=== PATIENT | female | born 1990 | race Caucasian/White ===

== ENCOUNTER 2018-10-28 01:55 | Inpatient (IN) | payer BC ==
[2018-10-28] MEDS ORDERED: Ondansetron 4 MG/2 ML SDV IVPUSH PRN ×2 (02:16→03:05)
[2018-10-28] MEDS ORDERED: Sodium Chloride 0.9% 10 ML Syringe FLUSH PRN (02:16)
[2018-10-28] MEDS ORDERED: Nalbuphine 20 MG/ML 1 ML Syringe IVPUSH PRN (02:16)
[2018-10-28] MEDS ORDERED: Ampicillin 2 GM AdvVial IV ONE (02:23)
[2018-10-28] MEDS ORDERED: Ampicillin 2 GM in Sodium Chloride 0.9% 100 ML IV ONE (02:30)
[2018-10-28] MEDS ORDERED: Oxytocin/Lactated Ringers 10 UNIT/1,000 ML BAG IV SCH (02:30)
[2018-10-28] MEDS: Lactated Ringers 1,000 ML IV SCH ×3 (02:41→06:43)
[2018-10-28] MEDS ORDERED: ePHEDrine 50 MG/ML SDV IVPUSH PRN (03:05)
[2018-10-28] MEDS ORDERED: diphenhydrAMINE 50 MG/ML SDV IVPUSH PRN (03:05)
[2018-10-28] MEDS ORDERED: fentaNYL 100 MCG/2 ML SDV EPIDUR PRN (03:05)
[2018-10-28] MEDS ORDERED: fentaNYL/Bupivacaine-NS 2 MCG/ML-0.125%/PF 100 ML Bag EPIDUR SCH (03:15)
--- NOTE | 2018-10-28 03:53 | PCM.PREANE ---
Preanesthetic Assessment - Anesthesia/Transfusion/Family Hx Anesthesia History: Prior Anesthesia Without Reaction Family History of Anesthesia Reaction: No Transfusion History: No Prior Transfusion(s) - Review of Systems General: No Symptoms Pulmonary: No Symptoms Cardiovascular: No Symptoms Gastrointestinal: Other (Heart Burn ) Neurological: No Symptoms Other: Reports: None - Physical Assessment O2 Sat by Pulse Oximetry: 98 Respiratory Rate: 16 Vital Signs: Last Vital Signs Temp 36.8 C 10/28/18 02:05 Pulse 77 10/28/18 02:05 Resp 16 10/28/18 02:05 BP 128/78 10/28/18 02:05 Pulse Ox 98 10/28/18 02:05 Height: 1.65 m Weight: 91.172 kg ASA Class: 2 Mental Status: Alert & Oriented x3 Airway Class: Mallampati = 2 Dentition: Reports: Normal Dentition Thyro-Mental Finger Breadths: 3 Mouth Opening Finger Breadths: 3 ROM/Head Extension: Full Lungs: Clear to Auscultation, Normal Respiratory Effort Cardiovascular: Regular Rate, Regular Rhythm - Lab Values: Laboratory Last Values WBC 10.52 K/mm3 (3.98-10.04) H 10/28/18 02:35 RBC 4.79 M/mm3 (3.98-5.22) 10/28/18 02:35 Hgb 13.6 gm/L (11.2-15.7) 10/28/18 02:35 Hct 40.5 % (34.1-44.9) 10/28/18 02:35 MCV 84.6 fl (79.4-94.8) 10/28/18 02:35 MCH 28.4 pg (25.6-32.2) 10/28/18 02:35 MCHC 33.6 g/dl (32.2-35.5) 10/28/18 02:35 RDW Std Deviation 41.7 fL (36.4-46.3) 10/28/18 02:35 Plt Count 186 K/mm3 (182-369) 10/28/18 02:35 MPV 10.8 fl (9.4-12.3) 10/28/18 02:35 Neut % (Auto) 76.1 % (34.0-71.1) H 10/28/18 02:35 Lymph % (Auto) 15.8 % (19.3-51.7) L 10/28/18 02:35 [place] % (Auto) 6.8 % (4.7-12.5) 10/28/18 02:35 Eos % (Auto) 0.9 (0.7-5.8) 10/28/18 02:35 Baso % (Auto) 0.1 % (0.1-1.2) 10/28/18 02:35 Neut # (Auto) 8.01 K/mm3 (1.56-6.13) H 10/28/18 02:35 Lymph # (Auto) 1.66 K/mm3 (1.18-3.74) 10/28/18 02:35 [place] # (Auto) 0.72 K/mm3 (0.24-0.36) H 10/28/18 02:35 Eos # (Auto) 0.09 K/mm3 (0.04-0.36) 10/28/18 02:35 Baso # (Auto) 0.01 K/mm3 (0.01-0.08) 10/28/18 02:35 Blood Type O NEGATIVE 10/28/18 02:35 Gel Antibody Screen Positive 10/28/18 02:35 - Allergies Allergies/Adverse Reactions: Allergies Allergy/AdvReac Type Severity Reaction Status Date / Time Sulfa (Sulfonamide Allergy Hives Verified 10/28/18 02:05 Antibiotics) - Acknowledgements Anesthesia Type Planned: Epidural Pt an Appropriate Candidate for the Planned Anesthesia: Yes Alternatives and Risks of Anesthesia Discussed w Pt/Guardian: Yes Pt/Guardian Understands and Agrees with Anesthesia Plan: Yes PreAnesthesia Questionnaire HEENT History: Reports: Impaired Vision, Other (See Below) Other HEENT History: Corrective lenses VP ANCILLARY History: Reports: Endocrine/Metabolic History: Reports: Obesity/BMI 30+ - SUBSTANCE USE Smoking Status *Q: Never Smoker Second Hand Smoke Exposure: No Recreational Drug Use History: No - CURRENT (IN HOUSE) MEDS Current Meds: Current Medications Diphenhydramine HCl (Benadryl) 25 mg IVPUSH Q6H PRN PRN Reason: Pruritis Ephedrine Sulfate (Ephedrine Sulfate) 5 mg IVPUSH ASDIRECTED PRN PRN Reason: Hypotension Fentanyl (Sublimaze) 100 mcg EPIDUR ONETIME PRN PRN Reason: Pain Last Admin: 10/28/18 03:47 Dose: 100 mcg Fentanyl/Bupivacaine HCl (Cnwuqgnc-Ynegg-Lp 2 Mcg/Ml-0.125%) 100 ml EPIDUR ASDIRECTED [facility] Last Admin: 10/28/18 03:47 Dose: 100 ml Lactated Ringer's (Ringers, Lactated) 1,000 mls @ 100 mls/hr IV ASDIRECTED [facility] Last Admin: 10/28/18 03:06 Dose: 999 mls/hr Ampicillin Sodium 1 gm/ Sodium (Chloride) 100 mls @ 200 mls/hr IV Q4H [facility] Oxytocin/Lactated Ringer's (Pitocin In Lr 10 Units/1,000 Ml) 10 unit in 1,000 mls @ 500 mls/hr IV .CONTINUOUS [facility] Nalbuphine HCl (Nubain) 10 mg IVPUSH Q2H PRN PRN Reason: pain Ondansetron HCl (Zofran) 4 mg IVPUSH Q4H PRN PRN Reason: Nausea/Vomiting Ondansetron HCl (Zofran) 4 mg IVPUSH ONETIME PRN PRN Reason: Nausea/Vomiting Sodium Chloride (Saline Flush) 10 ml FLUSH ASDIRECTED PRN PRN Reason: Keep Vein Open Discontinued Medications Ampicillin Sodium (Ampicillin) Confirm Administered Dose 2 gm IV .STK-MED ONE Stop: 10/28/18 02:24 Last Admin: 10/28/18 02:42 Dose: Not Given Ampicillin Sodium 2 gm/ Sodium (Chloride) 100 mls @ 200 mls/hr IV ONETIME ONE Stop: 10/28/18 02:59 Last Admin: 10/28/18 02:41 Dose: 200 mls/hr
[2018-10-28] MEDS ORDERED: Ampicillin 1 GM in Sodium Chloride 0.9% 100 ML IV SCH (06:30)
[2018-10-28] MEDS ORDERED: ceFAZolin 1 GM in Premix Bag 1 BAG IV ONE (09:30)
--- NOTE | 2018-10-28 09:36 | PCM.DEL ---
L & D Note - General Info Date of Service: 10/28/18 - Delivery Note Labor: Spontaneous Delivery Outcome: Livebirth Delivery Method: Spontaneous Vaginal Delivery-Single Delivery Mode: Vacuum Extraction Presentation: Right Occiput Anterior (GRZEGORZ) Nuchal Cord: None Anesthesia Type: Epidural Amniotic Fluid Description: Clear Episiotomy Type: None Laceration: 2nd Degree, Perineal Suture type: Vicryl Suture size: 2-0 Placenta: Intact, Spontaneous Cord: 3 Vessels Estimated Blood Loss: 200 Resuscitation Needed: Yes [place]: Bulb Syringe, Stimulated, Warmed, [place] Used, Warmer Used Delivery Comments (Free Text/Narrative):: The patient was pushing in the dorsal lithotomy position. She had been pushing for about 1 hour with good effort. Moderate amount of bright blood encountered with pushing. With pushing head did seem to come down to +2 station, but in between pushing settled higher in pelvis. Overall picture concerning for possible impending uterine rupture. OR crew alerted to set up OR and be on standby. Maternal pushing effort was good and the pelvis was felt to be adequate for an instrument assisted delivery. Given concerns listed above patient consented for vacuum assistance The mushroom cup was placed without difficulty with care to avoid the vaginal side power. Application around 0903. Subsequent vacuum assisted vaginal delivery occurred over 2 contractions. Total pressure applied 550 mm Hg. Total pop offs 0. Suction was removed following delivery of the head. No nuchal cord. The remainder of the delivered without difficulty. The umbilical cord was clamped and cut and the infant was placed on maternal abdomen. Placenta allowed time to separate and expelled intact. Hand placed into the uterine cavity to level of the fundus. With gently withdrawing hand the anterior surface of the uterus was palpated and a depression around anticipated site of scar was felt , but breech or rupture noted. Patient given dose of ancef for this exploration Inspection of the perineum following delivery with a 2nd degree laceration which was repaired with a 2-0 vicryl in the typical fashion Vacuum Extractor Progress Note - Alternative Labor Strategies Considered Alternative Labor Strategies Considered:: Reports: Yes Strategies Considered:: Reports: Contraction Intensity Adequate Indications Considered:: Reports: Yes Indications:: Reports: Suspicion of Immediate or Potential Compromise Time Out:: Reports: Yes - Patient Prepared Patient Prepared:: Reports: Yes Informed Consent:: Reports: Verbal Risks: Reports: Yes Risks Include:: Reports: Laceration, Shoulder Dystocia, Maternal Injury Anesthesia/Analgesia Adequate:: Reports: Yes - Probability of Success High Probability of Success:: Reports: Yes Weight Estimated:: Reports: AGA Patient Diabetic:: Reports: No Pelvis Adequate:: Reports: Yes Asynclitic:: Reports: No - Application Time Maximum Application Time & Number of Pop-Offs Predetermined:: Reports: Yes Maximum Pressure Maintained in [place] (cm Hg):: 550 Total Application Time (min): *max=20min: 4 Number of Times Cup Disengaged:: 0 Type of Vacuum Used:: Reports: Cup: Mushroom type Vacuum Extraction: Successful - Exit Strategy Exit strategy available:: Reports: Yes and resuscitation teams readily available:: Reports: Yes - General Info Date of Service: 10/28/18 - Patient Data Vitals - Most Recent: Last Vital Signs Temp 36.8 C 10/28/18 02:05 Pulse 77 10/28/18 02:05 Resp 16 10/28/18 03:52 BP 128/78 10/28/18 02:05 Pulse Ox 98 10/28/18 03:52 Weight - Most Recent: 91.172 kg Lab Results Last 24 Hours: Laboratory Results - last 24 hr 10/28/18 10/28/18 Range/Units 02:35 02:35 WBC 10.52 H (3.98-10.04) K/mm3 RBC 4.79 (3.98-5.22) M/mm3 Hgb 13.6 (11.2-15.7) gm/L Hct 40.5 (34.1-44.9) % MCV 84.6 (79.4-94.8) fl MCH 28.4 (25.6-32.2) pg MCHC 33.6 (32.2-35.5) g/dl RDW Std Deviation 41.7 (36.4-46.3) fL Plt Count 186 (182-369) K/mm3 MPV 10.8 (9.4-12.3) fl Neut % (Auto) 76.1 H (34.0-71.1) % Lymph % (Auto) 15.8 L (19.3-51.7) % [place] % (Auto) 6.8 (4.7-12.5) % Eos % (Auto) 0.9 (0.7-5.8) Baso % (Auto) 0.1 (0.1-1.2) % Neut # (Auto) 8.01 H (1.56-6.13) K/mm3 Lymph # (Auto) 1.66 (1.18-3.74) K/mm3 [place] # (Auto) 0.72 H (0.24-0.36) K/mm3 Eos # (Auto) 0.09 (0.04-0.36) K/mm3 Baso # (Auto) 0.01 (0.01-0.08) K/mm3 Blood Type O NEGATIVE Gel Antibody Screen Positive Med Orders - Current: Current Medications Diphenhydramine HCl (Benadryl) 25 mg IVPUSH Q6H PRN PRN Reason: Pruritis Ephedrine Sulfate (Ephedrine Sulfate) 5 mg IVPUSH ASDIRECTED PRN PRN Reason: Hypotension Fentanyl (Sublimaze) 100 mcg EPIDUR ONETIME PRN PRN Reason: Pain Last Admin: 10/28/18 03:47 Dose: 100 mcg Fentanyl/Bupivacaine HCl (Htwtwbos-Xxawv-Lj 2 Mcg/Ml-0.125%) 100 ml EPIDUR ASDIRECTED [facility] Last Admin: 10/28/18 03:47 Dose: 100 ml Lactated Ringer's (Ringers, Lactated) 1,000 mls @ 100 mls/hr IV ASDIRECTED [facility] Last Admin: 10/28/18 06:43 Dose: 150 mls/hr Ampicillin Sodium 1 gm/ Sodium (Chloride) 100 mls @ 200 mls/hr IV Q4H [facility] Last Admin: 10/28/18 06:41 Dose: 200 mls/hr Oxytocin/Lactated Ringer's (Pitocin In Lr 10 Units/1,000 Ml) 10 unit in 1,000 mls @ 500 mls/hr IV .CONTINUOUS [facility] Cefazolin Sodium/Dextrose 1 gm (/ Premix) 50 mls @ 100 mls/hr IV ONETIME ONE Stop: 10/28/18 09:59 Nalbuphine HCl (Nubain) 10 mg IVPUSH Q2H PRN PRN Reason: pain Ondansetron HCl (Zofran) 4 mg IVPUSH Q4H PRN PRN Reason: Nausea/Vomiting Ondansetron HCl (Zofran) 4 mg IVPUSH ONETIME PRN PRN Reason: Nausea/Vomiting Sodium Chloride (Saline Flush) 10 ml FLUSH ASDIRECTED PRN PRN Reason: Keep Vein Open Discontinued Medications Ampicillin Sodium (Ampicillin) Confirm Administered Dose 2 gm IV .STK-MED ONE Stop: 10/28/18 02:24 Last Admin: 10/28/18 02:42 Dose: Not Given Ampicillin Sodium 2 gm/ Sodium (Chloride) 100 mls @ 200 mls/hr IV ONETIME ONE Stop: 10/28/18 02:59 Last Admin: 10/28/18 02:41 Dose: 200 mls/hr - Problem List & Annotations (1) 38 weeks gestation of SNOMED Code(s): 24066524 Code(s): Z3A.38 - 38 WEEKS GESTATION OF Status: Acute Current Visit: Yes (2) GBS (group B Streptococcus carrier), +RV culture, currently SNOMED Code(s): 3587214493815, 950398508, 6942228146017 Code(s): O99.820 - STREPTOCOCCUS B CARRIER STATE COMPLICATING Status: Acute Current Visit: Yes (3) History of SNOMED Code(s): 720905883 Code(s): Z98.891 - HISTORY OF UTERINE SCAR FROM PREVIOUS SURGERY Status: Acute Current Visit: Yes (4) Hx successful (vaginal after ), currently SNOMED Code(s): 643541549, 963891540, 987981866 Code(s): O34.219 - MATERNAL CARE FOR UNSP TYPE SCAR FROM PREVIOUS DEL Status: Acute Current Visit: Yes (5) Rh negative state in antepartum period SNOMED Code(s): 637461427 Code(s): O26.899 - OTH RELATED CONDITIONS, UNSPECIFIED TRIMESTER; Z67.91 - UNSPECIFIED BLOOD TYPE, RH NEGATIVE Status: Acute Current Visit: Yes (6) Status post vacuum-assisted vaginal delivery SNOMED Code(s): 571513145, 07170380251366458 Code(s): Z87.59 - PERSONAL HISTORY OF COMP OF PREG, CHLDBRTH AND THE PUERP Status: Acute Current Visit: Yes - Problem List Review Problem List Initiated/Reviewed/Updated: Yes - My Orders Last 24 Hours: My Active Orders 10/28/18 02:05 Vital Signs [RC] PER UNIT ROUTINE Resuscitation Status Routine 10/28/18 02:16 Nalbuphine [Nubain] 10 mg IVPUSH Q2H PRN Ondansetron [Zofran] 4 mg IVPUSH Q4H PRN Sodium Chloride 0.9% [Saline Flush] 10 ml FLUSH ASDIRECTED PRN 10/28/18 02:17 Patient Status [ADT] Routine Activity as Tolerated [RC] PFP Communication Order [RC] ASDIRECTED Heart Tones [RC] ASDIRECTED Non Stress Test [RC] PER UNIT ROUTINE Notify Provider [RC] PFP Notify Provider [RC] PRN Peripheral IV Care [RC] . DIRECTED Vital Signs [RC] PER UNIT ROUTINE Electronic Heart Tones Ext w TOCO [WOMSER] Routine Electronic Heart Tones Internal [WOMSER] Per Unit Routine Peripheral IV Insertion Adult [OM.PC] Routine 10/28/18 02:30 Lactated Ringers [Ringers, Lactated] 1,000 ml IV ASDIRECTED Oxytocin/Lactated Ringers [Pitocin in LR 10 Units/1,000 ML] 10 unit in 1,000 ml IV .CONTINUOUS 10/28/18 02:35 ANTIBODY IDENTIFICATION [BBK] Stat RAPID PLASMA REAGIN,RPR [CHEM] Routine TYPE AND SCREEN [BBK] Stat 10/28/18 06:30 Ampicillin 1 gm Sodium Chloride 0.9% [Normal Saline] 100 ml IV Q4H 10/28/18 09:30 ceFAZolin [Ancef] 1 gm Premix Bag 1 bag IV ONETIME 10/28/18 09:31 Patient Status Manage Transfer [TRANSFER] Routine 10/28/18 Breakfast Regular Diet [DIET] - Assessment Assessment:: 28 y/o PPD#0 from [facility]/ - Plan Plan:: * Routine cares * Encourage breast feeding * Will assess baby blood type to assess need for Rhogam * Patient to be given 1 gram ancef * Discharge home in 1-2 days
--- NOTE | 2018-10-28 09:36 | PCM.LDHP ---
L&D History of Present Illness - General Date of Service: 10/28/18 Admit Problem/Dx: Patient Status Order with Admit Dx/Problem 10/28/18 02:05 Patient Status [ADT] Routine 10/28/18 02:17 Patient Status [ADT] Routine Admission Diagnosis/Problem Admission Diagnosis/Problem Source of Information: Patient History Limitations: Reports: No Limitations - History of Present Illness Introduction:: Patient is a 28 y/o at 38 5/7 wks who presented early this AM in labor. Doing well currently. Comfortable with her epidural in place. 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: , Other (See Below) (History of HELLP Syndrome / Preeclampsia) : 3 Para: 2 LMP (Approximate): - Past Surgical History Female Surgical History: Reports: Section Social & Family History - Family History Family Medical History: Noncontributory - Tobacco Use Smoking Status *Q: Never Smoker Second Hand Smoke Exposure: No - Caffeine Use Caffeine Use: Reports: Soda Other Caffeine Use: occasional - Alcohol Use Alcohol Use History: No - Recreational Drug Use Recreational Drug Use: No H&P Review of Systems - Review of Systems: Review Of Systems: See Below General: Reports: No Symptoms Pulmonary: Reports: No Symptoms Cardiovascular: Reports: No Symptoms Gastrointestinal: Reports: No Symptoms Genitourinary: Reports: No Symptoms Musculoskeletal: Reports: No Symptoms Psychiatric: Reports: No Symptoms Neurological: Reports: No Symptoms L&D Exam - Exam Exam: See Below - Vital Signs Vital Signs: Last Vital Signs Temp 36.8 C 10/28/18 02:05 Pulse 77 10/28/18 02:05 Resp 16 10/28/18 03:52 BP 128/78 10/28/18 02:05 Pulse Ox 98 10/28/18 03:52 Weight: 91.172 kg - OB Specific Contraction Intensity: Moderate to Strong Movement: Active Heart Tones: Present Heart Tones per Min: 135 Heart Rate (FHR) Variability: Moderate (6-25 bmp) Presentation: Vertex - Montesinos Score Montesinos Score Cervix Position: Anterior Montesinos Score Consistency: Soft Montesinos Score Effacement: >80% Montesinos Score Dilation: > 5 cm Montesinos Score Infant's Station: -1 ,0 Montesinos Score Total: 12 - Exam General: Alert, Oriented, Cooperative Lungs: Clear to Auscultation, Normal Respiratory Effort Cardiovascular: Regular Rate, Regular Rhythm GI/Abdominal Exam: Soft, Non-Tender Genitourinary: Normal external exam Extremities: Normal Inspection Skin: Warm, Dry, Intact - Patient Data Lab Results Last 24 hrs: Laboratory Results - last 24 hr 10/28/18 10/28/18 Range/Units 02:35 02:35 WBC 10.52 H (3.98-10.04) K/mm3 RBC 4.79 (3.98-5.22) M/mm3 Hgb 13.6 (11.2-15.7) gm/L Hct 40.5 (34.1-44.9) % MCV 84.6 (79.4-94.8) fl MCH 28.4 (25.6-32.2) pg MCHC 33.6 (32.2-35.5) g/dl RDW Std Deviation 41.7 (36.4-46.3) fL Plt Count 186 (182-369) K/mm3 MPV 10.8 (9.4-12.3) fl Neut % (Auto) 76.1 H (34.0-71.1) % Lymph % (Auto) 15.8 L (19.3-51.7) % [place] % (Auto) 6.8 (4.7-12.5) % Eos % (Auto) 0.9 (0.7-5.8) Baso % (Auto) 0.1 (0.1-1.2) % Neut # (Auto) 8.01 H (1.56-6.13) K/mm3 Lymph # (Auto) 1.66 (1.18-3.74) K/mm3 [place] # (Auto) 0.72 H (0.24-0.36) K/mm3 Eos # (Auto) 0.09 (0.04-0.36) K/mm3 Baso # (Auto) 0.01 (0.01-0.08) K/mm3 Blood Type O NEGATIVE Gel Antibody Screen Positive Result Diagrams: 10/28/18 02:35 - Problem List (1) 38 weeks gestation of SNOMED Code(s): 71344990 ICD Code: Z3A.38 - 38 WEEKS GESTATION OF Status: Acute Current Visit: Yes (2) Rh negative state in antepartum period SNOMED Code(s): 136071029 ICD Code: O26.899 - OTH RELATED CONDITIONS, UNSPECIFIED TRIMESTER; Z67.91 - UNSPECIFIED BLOOD TYPE, RH NEGATIVE Status: Acute Current Visit: Yes (3) History of SNOMED Code(s): 474285005 ICD Code: Z98.891 - HISTORY OF UTERINE SCAR FROM PREVIOUS SURGERY Status: Acute Current Visit: Yes (4) Hx successful (vaginal after ), currently SNOMED Code(s): 062844153, 411495833, 429730933 ICD Code: O34.219 - MATERNAL CARE FOR UNSP TYPE SCAR FROM PREVIOUS DEL Status: Acute Current Visit: Yes (5) GBS (group B Streptococcus carrier), +RV culture, currently SNOMED Code(s): 8729846925214, 658203858, 9621037183113 ICD Code: O99.820 - STREPTOCOCCUS B CARRIER STATE COMPLICATING Status: Acute Current Visit: Yes Problem List Initiated/Reviewed/Updated: Yes Orders Last 24hrs: Active Orders 24 hr Category Date Time Status Patient Status Manage Transfer [TRANSFER] Routine ADT 10/28/18 09:31 Ordered Patient Status [ADT] Routine ADT 10/28/18 02:17 Active Activity as Tolerated [RC] PFP Care 10/28/18 02:17 Active Communication Order [RC] ASDIRECTED Care 10/28/18 02:17 Active Heart Tones [RC] ASDIRECTED Care 10/28/18 02:17 Active Non Stress Test [RC] PER UNIT ROUTINE Care 10/28/18 02:17 Active Notify Provider [RC] ASDIRECTED Care 10/28/18 03:05 Active Notify Provider [RC] PFP Care 10/28/18 02:17 Active Notify Provider [RC] PRN Care 10/28/18 02:17 Active Peripheral IV Care [RC] . DIRECTED Care 10/28/18 02:17 Active Vital Signs [RC] PER UNIT ROUTINE Care 10/28/18 02:05 Active Vital Signs [RC] PER UNIT ROUTINE Care 10/28/18 02:17 Active Regular Diet [DIET] Diet 10/28/18 Breakfast Active ANTIBODY IDENTIFICATION [BBK] Stat Lab 10/28/18 02:35 Results RAPID PLASMA REAGIN,RPR [CHEM] Routine Lab 10/28/18 02:35 Received TYPE AND SCREEN [BBK] Stat Lab 10/28/18 02:35 Results Ampicillin 1 gm Med 10/28/18 06:30 Active Sodium Chloride 0.9% [Normal Saline] 100 ml IV Q4H Lactated Ringers [Ringers, Lactated] 1,000 ml Med 10/28/18 02:30 Active IV ASDIRECTED Nalbuphine [Nubain] Med 10/28/18 02:16 Active 10 mg IVPUSH Q2H PRN Ondansetron [Zofran] Med 10/28/18 03:05 Active 4 mg IVPUSH ONETIME PRN Ondansetron [Zofran] Med 10/28/18 02:16 Active 4 mg IVPUSH Q4H PRN Oxytocin/Lactated Ringers [Pitocin in LR 10 Units/1,000 Med 10/28/18 02:30 Active ML] 10 unit in 1,000 ml IV .CONTINUOUS Sodium Chloride 0.9% [Saline Flush] Med 10/28/18 02:16 Active 10 ml FLUSH ASDIRECTED PRN ceFAZolin [Ancef] 1 gm Med 10/28/18 09:30 Active Premix Bag 1 bag IV ONETIME diphenhydrAMINE [Benadryl] Med 10/28/18 03:05 Active 25 mg IVPUSH Q6H PRN ePHEDrine [ePHEDrine sulfate] Med 10/28/18 03:05 Active 5 mg IVPUSH ASDIRECTED PRN fentaNYL [Sublimaze] Med 10/28/18 03:05 Active 100 mcg EPIDUR ONETIME PRN fentaNYL/Bupivacaine/NS/PF [syuokUJJ-Rxkwm-OJ 2 MCG/ML- Med 10/28/18 03:15 Active 0.125%] 100 ml EPIDUR ASDIRECTED Electronic Heart Tones Ext w TOCO [WOMSER] Oth 10/28/18 02:17 Ordered Routine Electronic Heart Tones Internal [WOMSER] Per Unit Oth 10/28/18 02:17 Ordered Routine Peripheral IV Insertion Adult [OM.PC] Routine Oth 10/28/18 02:17 Ordered Resuscitation Status Routine Resus Stat 10/28/18 02:05 Ordered Medication Orders Diphenhydramine HCl (Benadryl) 25 mg IVPUSH Q6H PRN PRN Reason: Pruritis Ephedrine Sulfate (Ephedrine Sulfate) 5 mg IVPUSH ASDIRECTED PRN PRN Reason: Hypotension Fentanyl (Sublimaze) 100 mcg EPIDUR ONETIME PRN PRN Reason: Pain Last Admin: 10/28/18 03:47 Dose: 100 mcg Fentanyl/Bupivacaine HCl (Nmbmgjly-Gdivy-Sn 2 Mcg/Ml-0.125%) 100 ml EPIDUR ASDIRECTED [facility] Last Admin: 10/28/18 03:47 Dose: 100 ml Lactated Ringer's (Ringers, Lactated) 1,000 mls @ 100 mls/hr IV ASDIRECTED [facility] Last Admin: 10/28/18 06:43 Dose: 150 mls/hr Infusion: 10/28/18 04:07 Dose: 999 mls/hr Admin: 10/28/18 03:06 Dose: 999 mls/hr Infusion: 10/28/18 03:06 Dose: 100 mls/hr Admin: 10/28/18 02:41 Dose: 100 mls/hr Ampicillin Sodium 1 gm/ Sodium (Chloride) 100 mls @ 200 mls/hr IV Q4H [facility] Last Admin: 10/28/18 06:41 Dose: 200 mls/hr Oxytocin/Lactated Ringer's (Pitocin In Lr 10 Units/1,000 Ml) 10 unit in 1,000 mls @ 500 mls/hr IV .CONTINUOUS [facility] Cefazolin Sodium/Dextrose 1 gm (/ Premix) 50 mls @ 100 mls/hr IV ONETIME ONE Stop: 10/28/18 09:59 Nalbuphine HCl (Nubain) 10 mg IVPUSH Q2H PRN PRN Reason: pain Ondansetron HCl (Zofran) 4 mg IVPUSH Q4H PRN PRN Reason: Nausea/Vomiting Ondansetron HCl (Zofran) 4 mg IVPUSH ONETIME PRN PRN Reason: Nausea/Vomiting Sodium Chloride (Saline Flush) 10 ml FLUSH ASDIRECTED PRN PRN Reason: Keep Vein Open Assessment/Plan Comment:: * Labs done on admission * Epidural in place * Receiving ampicillin for GBS status * AROM performed of large forebag, currently about 9 cm * Aware of risks/benefits of TOLAC. Consent signed * Anticipate
[2018-10-28] MEDS ORDERED: Lanolin 100% Cream 7 GM Tube TOP PRN (09:58)
[2018-10-28] MEDS ORDERED: Ibuprofen 600 MG Tab PO PRN (09:58)
[2018-10-28] MEDS ORDERED: Benzocaine/Menthol 20%-0.5% Spray 56 GM Canister TOP PRN (09:58)
[2018-10-28] MEDS ORDERED: Witch Hazel Medicated Pads 40/Jar TOP PRN (09:58)
[2018-10-28] MEDS ORDERED: Docusate Sodium 100 MG Cap PO PRN (09:58)
[2018-10-28] MEDS ORDERED: Acetaminophen 325 MG Tab PO PRN (09:58)
[2018-10-28] MEDS ORDERED: Lidocaine 1.5% with EPINEPHrine 1:200,000 5 ML Amp ONE (16:00)
[2018-10-28] MEDS ORDERED: Bupivacaine 0.25% 10 ML SDV ONE (16:00)
--- NOTE | 2018-10-29 06:36 | PCM.DCSUM1 ---
Discharge Summary - Discharge Data Discharge Date: 10/29/18 Discharge Disposition: Home, Self-Care 01 Condition: Good - Discharge Diagnosis/Problem(s) (1) 38 weeks gestation of SNOMED Code(s): 89524064 ICD Code: Z3A.38 - 38 WEEKS GESTATION OF Status: Acute Current Visit: Yes (2) GBS (group B Streptococcus carrier), +RV culture, currently SNOMED Code(s): 4113354694229, 179464763, 4413532110025 ICD Code: O99.820 - STREPTOCOCCUS B CARRIER STATE COMPLICATING Status: Acute Current Visit: Yes (3) History of SNOMED Code(s): 573526568 ICD Code: Z98.891 - HISTORY OF UTERINE SCAR FROM PREVIOUS SURGERY Status: Acute Current Visit: Yes (4) Hx successful (vaginal after ), currently SNOMED Code(s): 828568300, 331467963, 108427707 ICD Code: O34.219 - MATERNAL CARE FOR UNSP TYPE SCAR FROM PREVIOUS DEL Status: Acute Current Visit: Yes (5) Rh negative state in antepartum period SNOMED Code(s): 228723756 ICD Code: O26.899 - OTH RELATED CONDITIONS, UNSPECIFIED TRIMESTER; Z67.91 - UNSPECIFIED BLOOD TYPE, RH NEGATIVE Status: Acute Current Visit: Yes (6) Status post vacuum-assisted vaginal delivery SNOMED Code(s): 859923984, 01554845873321379 ICD Code: Z87.59 - PERSONAL HISTORY OF COMP OF PREG, CHLDBRTH AND THE PUERP Status: Acute Current Visit: Yes - Patient Summary/Data Complications: None Consults: None Recommended Follow-up Testing/Procedures: Follow up in 3-5 weeks for check Hospital Course: 28 y/o at 38 5/7 wks presented in labor. Hx of PLTCS and then successful . Desired again this . She progressed well to complete dilation. With pushing there was some concern for loss of station after an hour or so. Because of this VAVD done and was successful. See delivery note. she did well and was discharged home on PPD#1 - Patient Instructions Diet: Regular Diet as Tolerated Activity: As Tolerated Activity, Other: Pelvic Rest for 6 weeks Driving: May Drive Today Showering/Bathing: May Shower Showering/Bathing, Other: May Bathe Notify Provider of: Fever, Increased Pain, Swelling and Redness, Drainage, Nausea and/or Vomiting - Discharge Plan *PRESCRIPTION DRUG MONITORING PROGRAM REVIEWED*: Not Applicable *COPY OF PRESCRIPTION DRUG MONITORING REPORT IN PATIENT EVIE: Not Applicable Home Medications: Home Meds PNV95/Ferrous Fumarate/FA [ Tablet] 1 each PO DAILY 10/28/18 [History] Docusate Sodium [Colace] 100 mg PO BID PRN cap 10/29/18 [Rx] Ibuprofen [Motrin] 600 mg PO Q6H PRN tablet 10/29/18 [Rx] Referrals: Shari Borja MD [Primary Care Provider] - (3-6 weeks for check ) - Discharge Summary/Plan Comment DC Time >30 min.: No - Patient Data Vitals - Most Recent: Last Vital Signs Temp 36.6 C 10/29/18 04:14 Pulse 81 10/29/18 04:14 Resp 14 10/29/18 04:14 BP 123/55 L 10/29/18 04:14 Pulse Ox 99 10/29/18 04:14 Weight - Most Recent: 91.172 kg I&O - Last 24 hours: Intake & Output 10/28/18 10/28/18 10/29/18 14:59 22:59 06:59 Intake Total 0 Balance 0 Med Orders - Current: Current Medications Acetaminophen (Tylenol) 650 mg PO Q4H PRN PRN Reason: mild pain or fever Benzocaine/Menthol (Dermoplast Pain Relief [place]) 0 gm TOP ASDIRECTED PRN PRN Reason: Perineal Comfort Measure Last Admin: 10/28/18 12:08 Dose: 1 spray Docusate Sodium (Colace) 100 mg PO BID PRN PRN Reason: Constipation Emollient Ointment (Lansinoh Hpa) 0 gm TOP ASDIRECTED PRN PRN Reason: Sore Nipples Ibuprofen (Motrin) 600 mg PO Q6H PRN PRN Reason: Mild pain or fever Last Admin: 10/28/18 20:05 Dose: 600 mg Witch Ragini (Tucks) 1 pad TOP ASDIRECTED PRN PRN Reason: Perineal Comfort Measure Last Admin: 10/28/18 12:08 Dose: 1 pad Discontinued Medications Ampicillin Sodium (Ampicillin) Confirm Administered Dose 2 gm IV .STK-MED ONE Stop: 10/28/18 02:24 Last Admin: 10/28/18 02:42 Dose: Not Given Diphenhydramine HCl (Benadryl) 25 mg IVPUSH Q6H PRN PRN Reason: Pruritis Ephedrine Sulfate (Ephedrine Sulfate) 5 mg IVPUSH ASDIRECTED PRN PRN Reason: Hypotension Fentanyl (Sublimaze) 100 mcg EPIDUR ONETIME PRN PRN Reason: Pain Last Admin: 10/28/18 03:47 Dose: 100 mcg Fentanyl/Bupivacaine HCl (Hkbryjpf-Fgrif-Ng 2 Mcg/Ml-0.125%) 100 ml EPIDUR ASDIRECTED [facility] Last Admin: 10/28/18 03:47 Dose: 100 ml Ampicillin Sodium 2 gm/ Sodium (Chloride) 100 mls @ 200 mls/hr IV ONETIME ONE Stop: 10/28/18 02:59 Last Admin: 10/28/18 02:41 Dose: 200 mls/hr Lactated Ringer's (Ringers, Lactated) 1,000 mls @ 100 mls/hr IV ASDIRECTED [facility] Last Admin: 10/28/18 06:43 Dose: 150 mls/hr Ampicillin Sodium 1 gm/ Sodium (Chloride) 100 mls @ 200 mls/hr IV Q4H [facility] Last Admin: 10/28/18 06:41 Dose: 200 mls/hr Oxytocin/Lactated Ringer's (Pitocin In Lr 10 Units/1,000 Ml) 10 unit in 1,000 mls @ 500 mls/hr IV .CONTINUOUS [facility] Last Admin: 10/28/18 08:45 Dose: 500 mls/hr Cefazolin Sodium/Dextrose 1 gm (/ Premix) 50 mls @ 100 mls/hr IV ONETIME ONE Stop: 10/28/18 09:59 Last Admin: 10/28/18 09:59 Dose: 100 mls/hr Nalbuphine HCl (Nubain) 10 mg IVPUSH Q2H PRN PRN Reason: pain Ondansetron HCl (Zofran) 4 mg IVPUSH Q4H PRN PRN Reason: Nausea/Vomiting Ondansetron HCl (Zofran) 4 mg IVPUSH ONETIME PRN PRN Reason: Nausea/Vomiting Sodium Chloride (Saline Flush) 10 ml FLUSH ASDIRECTED PRN PRN Reason: Keep Vein Open
--- NOTE | 2018-10-29 06:36 | PCM.PNPP ---
- General Info Date of Service: 10/29/18 Functional Status: Reports: Pain Controlled, Tolerating Diet, Ambulating, Urinating - Review of Systems General: Reports: No Symptoms Pulmonary: Reports: No Symptoms Cardiovascular: Reports: No Symptoms Gastrointestinal: Reports: No Symptoms Genitourinary: Reports: No Symptoms Musculoskeletal: Reports: No Symptoms Neurological: Reports: No Symptoms - Patient Data Vital Signs - Most Recent: Last Vital Signs Temp 36.6 C 10/29/18 04:14 Pulse 81 10/29/18 04:14 Resp 14 10/29/18 04:14 BP 123/55 L 10/29/18 04:14 Pulse Ox 99 10/29/18 04:14 Weight - Most Recent: 91.172 kg I&O - Last 24 Hours: Intake & Output 10/28/18 10/28/18 10/29/18 14:59 22:59 06:59 Intake Total 0 Balance 0 Med Orders - Current: Current Medications Acetaminophen (Tylenol) 650 mg PO Q4H PRN PRN Reason: mild pain or fever Benzocaine/Menthol (Dermoplast Pain Relief [place]) 0 gm TOP ASDIRECTED PRN PRN Reason: Perineal Comfort Measure Last Admin: 10/28/18 12:08 Dose: 1 spray Docusate Sodium (Colace) 100 mg PO BID PRN PRN Reason: Constipation Emollient Ointment (Lansinoh Hpa) 0 gm TOP ASDIRECTED PRN PRN Reason: Sore Nipples Ibuprofen (Motrin) 600 mg PO Q6H PRN PRN Reason: Mild pain or fever Last Admin: 10/28/18 20:05 Dose: 600 mg Witch Ragini (Tucks) 1 pad TOP ASDIRECTED PRN PRN Reason: Perineal Comfort Measure Last Admin: 10/28/18 12:08 Dose: 1 pad Discontinued Medications Ampicillin Sodium (Ampicillin) Confirm Administered Dose 2 gm IV .STK-MED ONE Stop: 10/28/18 02:24 Last Admin: 10/28/18 02:42 Dose: Not Given Diphenhydramine HCl (Benadryl) 25 mg IVPUSH Q6H PRN PRN Reason: Pruritis Ephedrine Sulfate (Ephedrine Sulfate) 5 mg IVPUSH ASDIRECTED PRN PRN Reason: Hypotension Fentanyl (Sublimaze) 100 mcg EPIDUR ONETIME PRN PRN Reason: Pain Last Admin: 10/28/18 03:47 Dose: 100 mcg Fentanyl/Bupivacaine HCl (Vhkgltse-Hvvjs-Mu 2 Mcg/Ml-0.125%) 100 ml EPIDUR ASDIRECTED [facility] Last Admin: 10/28/18 03:47 Dose: 100 ml Ampicillin Sodium 2 gm/ Sodium (Chloride) 100 mls @ 200 mls/hr IV ONETIME ONE Stop: 10/28/18 02:59 Last Admin: 10/28/18 02:41 Dose: 200 mls/hr Lactated Ringer's (Ringers, Lactated) 1,000 mls @ 100 mls/hr IV ASDIRECTED [facility] Last Admin: 10/28/18 06:43 Dose: 150 mls/hr Ampicillin Sodium 1 gm/ Sodium (Chloride) 100 mls @ 200 mls/hr IV Q4H [facility] Last Admin: 10/28/18 06:41 Dose: 200 mls/hr Oxytocin/Lactated Ringer's (Pitocin In Lr 10 Units/1,000 Ml) 10 unit in 1,000 mls @ 500 mls/hr IV .CONTINUOUS [facility] Last Admin: 10/28/18 08:45 Dose: 500 mls/hr Cefazolin Sodium/Dextrose 1 gm (/ Premix) 50 mls @ 100 mls/hr IV ONETIME ONE Stop: 10/28/18 09:59 Last Admin: 10/28/18 09:59 Dose: 100 mls/hr Nalbuphine HCl (Nubain) 10 mg IVPUSH Q2H PRN PRN Reason: pain Ondansetron HCl (Zofran) 4 mg IVPUSH Q4H PRN PRN Reason: Nausea/Vomiting Ondansetron HCl (Zofran) 4 mg IVPUSH ONETIME PRN PRN Reason: Nausea/Vomiting Sodium Chloride (Saline Flush) 10 ml FLUSH ASDIRECTED PRN PRN Reason: Keep Vein Open - Infant Interaction Disposition, : [place] in Room with Family Interaction: Holding Infant Support Person: - Recovery Exam Fundal Tone: Firm Fundal Level: At Umbilicus Fundal Placement: Midline Lochia Amount: Small, Moderate Lochia Color: Rubra/Red Bladder Status: Voiding - Exam General: Alert, Oriented, Cooperative GI/Abdominal Exam: Soft, Non-Tender Extremities: Normal Inspection Skin: Warm, Dry, Intact - Problem List & Annotations (1) 38 weeks gestation of SNOMED Code(s): 42259980 Code(s): Z3A.38 - 38 WEEKS GESTATION OF Status: Acute Current Visit: Yes (2) GBS (group B Streptococcus carrier), +RV culture, currently SNOMED Code(s): 7036077509846, 920769018, 0536029972561 Code(s): O99.820 - STREPTOCOCCUS B CARRIER STATE COMPLICATING Status: Acute Current Visit: Yes (3) History of SNOMED Code(s): 465009959 Code(s): Z98.891 - HISTORY OF UTERINE SCAR FROM PREVIOUS SURGERY Status: Acute Current Visit: Yes (4) Hx successful (vaginal after ), currently SNOMED Code(s): 142636752, 033242946, 678818350 Code(s): O34.219 - MATERNAL CARE FOR UNSP TYPE SCAR FROM PREVIOUS DEL Status: Acute Current Visit: Yes (5) Rh negative state in antepartum period SNOMED Code(s): 341334476 Code(s): O26.899 - OTH RELATED CONDITIONS, UNSPECIFIED TRIMESTER; Z67.91 - UNSPECIFIED BLOOD TYPE, RH NEGATIVE Status: Acute Current Visit: Yes (6) Status post vacuum-assisted vaginal delivery SNOMED Code(s): 380848497, 47759552431223550 Code(s): Z87.59 - PERSONAL HISTORY OF COMP OF PREG, CHLDBRTH AND THE PUERP Status: Acute Current Visit: Yes - Problem List Review Problem List Initiated/Reviewed/Updated: Yes - My Orders Last 24 Hours: My Active Orders 10/28/18 09:58 Activity as Tolerated [RC] PER UNIT ROUTINE Vital Signs [RC] ASDIRECTED Acetaminophen [Tylenol] 650 mg PO Q4H PRN Benzocaine/Menthol [Dermoplast Pain Relief [place]] See Dose Instructions TOP ASDIRECTED PRN Docusate Sodium [Colace] 100 mg PO BID PRN Ibuprofen [Motrin] 600 mg PO Q6H PRN Lanolin [Lansinoh HPA] See Dose Instructions TOP ASDIRECTED PRN Witch Ragini [Tucks] 1 pad TOP ASDIRECTED PRN Assess Lochia [WOMSER] Per Unit Routine Assess Uterine Involution [WOMSER] Per Unit Routine Breast Pump [WOMSER] Per Unit Routine Heat Therapy [OM.PC] PRN Ice Therapy [OM.PC] Per Unit Routine Perineal Care [OM.PC] Per Unit Routine Peripheral IV Discontinue [OM.PC] Routine Sitz Bath [OM.PC] Per Unit Routine 10/28/18 Breakfast Regular Diet [DIET] 10/29/18 06:15 RHOGAM, [RHIG WORKUP, ] [BBK] Routine 10/29/18 06:35 Ready for Discharge [RC] PER UNIT ROUTINE 10/29/18 09:58 Heat Therapy [OM.PC] PRN - Assessment Assessment:: 28 y/o PPD#1 from VAVD/ - Plan Plan:: * Routine cares * Encourage breast feeding * Discharge home today
--- NOTE | 2018-10-29 09:34 | PCM48HPAN ---
Post Anesthesia Note - EVALUATION WITHIN 48HRS OF ANESTHETIC Vital Signs in Normal Range: Yes Patient Participated in Evaluation: Yes Respiratory Function Stable: Yes Airway Patent: Yes Cardiovascular Function Stable: Yes Hydration Status Stable: Yes Pain Control Satisfactory: Yes Nausea and Vomiting Control Satisfactory: Yes Mental Status Recovered: Yes
== END 2018-10-29 11:45 | disposition home or self-care (01) | DRG 560 ==
LOC: JD.OBCHECK 01:55 → JD.OB 02:20 → JD.OBCHECK 02:31 → OBSVTOIN 09:07 → JD.OB 09:08
PROVIDERS: ADMIT Obstetrics & Gynecology; ATTEND Obstetrics & Gynecology
PROC: 10D07Z6 Extraction of Products of Conception, Vacuum, Via Natural or Artificial Opening (ICD-10-PCS; principal; 2018-10-28)
PROC: 10907ZC Drainage of Amniotic Fluid, Therapeutic from Products of Conception, Via Natural or Artificial Opening (ICD-10-PCS; principal; 2018-10-28)
PROC: 0KQM0ZZ Repair Perineum Muscle, Open Approach (ICD-10-PCS; principal; 2018-10-28)
PROC: 00HU33Z Insertion of Infusion Device into Spinal Canal, Percutaneous Approach (ICD-10-PCS; 2018-10-28)
PROC: 3E0R3BZ Introduction of Anesthetic Agent into Spinal Canal, Percutaneous Approach (ICD-10-PCS; 2018-10-28)
PROC: 3E0234Z Introduction of Serum, Toxoid and Vaccine into Muscle, Percutaneous Approach (ICD-10-PCS; 2018-10-29)
DX: O34.211 Maternal care for low transverse scar from previous cesarean delivery (principal); Z3A.38 38 weeks gestation of pregnancy; Z37.0 Single live birth; O99.824 Streptococcus B carrier state complicating childbirth; N85.8 Other specified noninflammatory disorders of uterus; O70.1 Second degree perineal laceration during delivery; O99.214 Obesity complicating childbirth; E66.9 Obesity, unspecified; O26.893 Other specified pregnancy related conditions, third trimester; Z67.41 Type O blood, Rh negative; Z88.2 Allergy status to sulfonamides
CPT/HCPCS: 36415; 51702; 59025; 59409; 85025; 85461; 86592; 86850; 86900; 86901; A9270-GY; J0290; J0690; J2590; J2790; J3010; J3490; J7030; J7120

== ENCOUNTER 2020-09-18 03:47 | Inpatient (IN) | payer BC ==
[2020-09-18] MEDS ORDERED: Nalbuphine 10 MG/1 ML Vial IVPUSH PRN (18:21)
[2020-09-18] MEDS ORDERED: Sodium Chloride 0.9% 10 ML Syringe FLUSH PRN (18:21)
[2020-09-18] MEDS ORDERED: Ampicillin 2 GM in Sodium Chloride 0.9% 100 ML IV ONE (18:21)
[2020-09-18] MEDS ORDERED: Ondansetron 4 MG/2 ML SDV IVPUSH PRN (18:21)
[2020-09-18] MEDS ORDERED: Oxytocin/Lactated Ringers 10 UNIT/1,000 ML BAG IV SCH ×2 (18:30→20:00)
--- NOTE | 2020-09-18 19:55 | PCM.LDHP ---
L&D History of Present Illness - General Date of Service: 09/18/20 Admit Problem/Dx: Patient Status Order with Admit Dx/Problem 09/18/20 18:22 Patient Status [ADT] Routine Admission Diagnosis/Problem Admission Diagnosis/Problem Abnormal test Source of Information: Patient History Limitations: Reports: No Limitations - History of Present Illness Introduction:: Patient is a 30 y/o at 37 3/7 wks who presents for IOL for abnormal testing. Was seen in clinic today with several days complaints of decreased FM. NST done and non reactive. Had discussion of risks/benefits of IOL vs BPP testing. Patient felt most comfortable with IOL which was felt to be reasonable. Currently doing well - Related Data Allergies/Adverse Reactions: Allergies Allergy/AdvReac Type Severity Reaction Status Date / Time Sulfa (Sulfonamide Allergy Hives Verified 09/18/20 19:07 Antibiotics) Home Medications: Home Meds Pnv No.95/Ferrous Fum/Folic AC [ Tablet] 1 each PO DAILY 10/28/18 [History] Past Medical History HEENT History: Reports: Impaired Vision Other HEENT History: Corrective lenses Respiratory History: Reports: Asthma PHARMACY TECH History: Reports: , Other (See Below) (Preeclampsia / HELLP) : 4 Para: 3 LMP (Approximate): Endocrine/Metabolic History: Reports: Obesity/BMI 30+ - Past Surgical History HEENT Surgical History: Reports: Oral Surgery Female Surgical History: Reports: Section Social & Family History - Family History Family Medical History: No Pertinent Family History - Tobacco Use Tobacco Use Status *Q: Never Tobacco User - Caffeine Use Caffeine Use: Reports: Soda Other Caffeine Use: occasional - Alcohol Use Alcohol Use History: No - Recreational Drug Use Recreational Drug Use: No H&P Review of Systems - Review of Systems: Review Of Systems: See Below General: Reports: No Symptoms Pulmonary: Reports: No Symptoms Cardiovascular: Reports: No Symptoms Gastrointestinal: Reports: No Symptoms Genitourinary: Reports: No Symptoms Musculoskeletal: Reports: No Symptoms Neurological: Reports: No Symptoms L&D Exam - Exam Exam: See Below - Vital Signs Vital Signs: Last Vital Signs Temp 37.1 C 09/18/20 18:22 Pulse 76 09/18/20 18:22 Resp 16 09/18/20 18:22 BP 133/95 H 09/18/20 18:22 Pulse Ox 100 09/18/20 18:22 Weight: 88.723 kg - OB Specific Contraction Intensity: Mild Movement: Active Heart Tones: Present Heart Tones per Min: 150 Heart Rate (FHR) Variability: Moderate (6-25 bmp) Presentation: Vertex - Montesinos Score Montesinos Score Cervix Position: Midposition Montesinos Score Consistency: Soft Montesinos Score Effacement: 51-70% Montesinos Score Dilation: 3-4 cm Montesinos Score Infant's Station: -2 Montesinos Score Total: 8 - Exam General: Alert, Oriented, Cooperative Lungs: Clear to Auscultation, Normal Respiratory Effort Cardiovascular: Regular Rate, Regular Rhythm GI/Abdominal Exam: Soft, Non-Tender Genitourinary: Normal external exam Extremities: Normal Inspection Skin: Warm, Dry, Intact - Patient Data Lab Results Last 24 hrs: Laboratory Results - last 24 hr 09/18/20 09/18/20 09/18/20 Range/Units 18:25 18:54 18:54 WBC 10.88 H (3.98-10.04) K/mm3 RBC 4.51 (3.98-5.22) M/mm3 Hgb 12.3 (11.2-15.7) gm/dl Hct 37.7 (34.1-44.9) % MCV 83.6 (79.4-94.8) fl MCH 27.3 (25.6-32.2) pg MCHC 32.6 (32.2-35.5) g/dl RDW Std Deviation 41.6 (36.4-46.3) fL Plt Count 212 (182-369) K/mm3 MPV 10.6 (9.4-12.3) fl Creatinine 0.6 (0.55-1.02) mg/dL Est Cr Clr Drug Dosing 122.25 mL/min Estimated GFR (MDRD) > 60 (>60) mL/min AST 18 (15-37) U/L ALT 19 (14-59) U/L SARS-CoV-2 RNA (ALEJANDRA) Negative (NEGATIVE) Result Diagrams: 09/18/20 18:54 09/18/20 18:54 - Problem List (1) 37 weeks gestation of SNOMED Code(s): 90346382 ICD Code: Z3A.37 - 37 WEEKS GESTATION OF Status: Acute Current Visit: Yes (2) Abnormal test SNOMED Code(s): 969519399, 054106253 ICD Code: O28.9 - UNSP ABNORMAL FINDINGS ON SCREENING OF MOTHER Status: Acute Current Visit: Yes (3) GBS (group B Streptococcus carrier), +RV culture, currently SNOMED Code(s): 1731219331507, 198502058, 6691647226703 ICD Code: O99.820 - STREPTOCOCCUS B CARRIER STATE COMPLICATING Status: Acute Current Visit: No (4) History of SNOMED Code(s): 910872504 ICD Code: Z98.891 - HISTORY OF UTERINE SCAR FROM PREVIOUS SURGERY Status: Acute Current Visit: No (5) Hx successful (vaginal after ), currently SNOMED Code(s): 724688761, 307999420, 383117712 ICD Code: O34.219 - MATERNAL CARE FOR UNSP TYPE SCAR FROM PREVIOUS DEL Status: Acute Current Visit: No (6) Rh negative state in antepartum period SNOMED Code(s): 222852516 ICD Code: O26.899 - OTH RELATED CONDITIONS, UNSPECIFIED TRIMESTER; Z67.91 - UNSPECIFIED BLOOD TYPE, RH NEGATIVE Status: Acute Current Visit: No Problem List Initiated/Reviewed/Updated: Yes Orders Last 24hrs: Active Orders 24 hr Category Date Time Status Patient Status [ADT] Routine ADT 09/18/20 18:22 Active Activity as Tolerated [RC] PFP Care 09/18/20 18:22 Active Communication Order [RC] ASDIRECTED Care 09/18/20 18:22 Active Heart Tones [RC] ASDIRECTED Care 09/18/20 18:22 Active Non Stress Test [RC] PER UNIT ROUTINE Care 09/18/20 18:22 Active Notify Provider [RC] PFP Care 09/18/20 18:22 Active Notify Provider [RC] PRN Care 09/18/20 18:22 Active Peripheral IV Care [RC] . DIRECTED Care 09/18/20 18:22 Active Vital Signs [RC] PER UNIT ROUTINE Care 09/18/20 18:22 Active Regular Diet [DIET] Diet 09/18/20 Dinner Active PROTEIN/CREATININE RATIO,URINE [URCHEM] Routine Lab 09/18/20 18:45 Ordered RAPID PLASMA REAGIN,RPR [CHEM] Routine Lab 02/18/21 18:54 Received TYPE AND SCREEN [BBK] Routine Lab 09/18/20 18:54 Received Ampicillin 1 gm Med 09/18/20 22:30 Active Sodium Chloride 0.9% [Normal Saline] 100 ml IV Q4H Lactated Ringers [Ringers, Lactated] 1,000 ml Med 09/18/20 18:30 Active IV ASDIRECTED Nalbuphine [Nubain] Med 09/18/20 18:21 Active 10 mg IVPUSH Q2H PRN Ondansetron [Zofran] Med 09/18/20 18:21 Active 4 mg IVPUSH Q4H PRN Oxytocin/Lactated Ringers [Pitocin in LR 10 Units/1,000 Med 09/18/20 18:30 Active ML] 10 unit in 1,000 ml IV .CONTINUOUS Sodium Chloride 0.9% [Saline Flush] Med 09/18/20 18:21 Active 10 ml FLUSH ASDIRECTED PRN Electronic Heart Tones Ext w TOCO [WOMSER] Oth 09/18/20 18:22 Ordered Routine Electronic Heart Tones Internal [WOMSER] Per Unit Oth 09/18/20 18:22 Ordered Routine Peripheral IV Insertion Adult [OM.PC] Routine Oth 09/18/20 18:22 Ordered Resuscitation Status Routine Resus Stat 09/18/20 18:21 Ordered Medication Orders Ampicillin Sodium 1 gm/ Sodium (Chloride) 100 mls @ 200 mls/hr IV Q4H JUDY Oxytocin/Lactated Ringer's (Pitocin In Lr 10 Units/1,000 Ml) 10 unit in 1,000 mls @ 500 mls/hr IV .CONTINUOUS JUDY Lactated Ringer's (Ringers, Lactated) 1,000 mls @ 100 mls/hr IV ASDIRECTED JUDY Nalbuphine HCl (Nubain) 10 mg IVPUSH Q2H PRN PRN Reason: Pain Ondansetron HCl (Zofran) 4 mg IVPUSH Q4H PRN PRN Reason: Nausea/Vomiting Sodium Chloride (Saline Flush) 10 ml FLUSH ASDIRECTED PRN PRN Reason: Keep Vein Open Assessment/Plan Comment:: * Labs to be done * Ampicillin for GBS positive status * Pitocin and AROM for IOL * Pain management per patient preference * Anticipate
[2020-09-18] MEDS: Lactated Ringers 1,000 ML IV SCH (20:03)
[2020-09-18] MEDS: Ampicillin 1 GM in Sodium Chloride 0.9% 100 ML IV SCH (22:38)
--- NOTE | 2020-09-18 23:35 | PCM.PNLD ---
Labor Progress Note - VS & Meds Vital Signs: Last Vital Signs Temp 37.1 C 09/18/20 18:22 Pulse 76 09/18/20 18:22 Resp 16 09/18/20 18:22 BP 133/95 H 09/18/20 18:22 Pulse Ox 100 09/18/20 18:22 Active Medications: Current Medications Ampicillin Sodium 1 gm/ Sodium (Chloride) 100 mls @ 200 mls/hr IV Q4H JUDY Last Admin: 09/18/20 22:38 Dose: 200 mls/hr Documented by: Oxytocin/Lactated Ringer's (Pitocin In Lr 10 Units/1,000 Ml) 10 unit in 1,000 mls @ 500 mls/hr IV .CONTINUOUS JUDY Lactated Ringer's (Ringers, Lactated) 1,000 mls @ 100 mls/hr IV ASDIRECTED [facility]Y Last Admin: 09/18/20 20:03 Dose: 100 mls/hr Documented by: Oxytocin/Lactated Ringer's (Pitocin In Lr 10 Units/1,000 Ml) 10 unit in 1,000 mls @ 12 mls/hr IV TITRATE JUDY; Protocol Last Titration: 09/18/20 22:43 Dose: 6 munits/min, 36 mls/hr Documented by: Nalbuphine HCl (Nubain) 10 mg IVPUSH Q2H PRN PRN Reason: Pain Ondansetron HCl (Zofran) 4 mg IVPUSH Q4H PRN PRN Reason: Nausea/Vomiting Sodium Chloride (Saline Flush) 10 ml FLUSH ASDIRECTED PRN PRN Reason: Keep Vein Open Discontinued Medications Ampicillin Sodium 2 gm/ Sodium (Chloride) 100 mls @ 200 mls/hr IV ONETIME ONE Stop: 09/18/20 18:50 Last Admin: 09/18/20 18:48 Dose: 200 mls/hr Documented by: - Uterine Contractions Uterine Monitoring Mode: External Krebs Contraction Intensity: Mild - Monitoring Monitor Mode: External Ultrasound Heart Rate (FHR) Baseline: 150 Heart Rate (FHR) Variability: Moderate (6-25 bmp) Accelerations: Present, 10x10 (=/<32 wks) Decelerations: None Strip Review: Category I - Vaginal Exam Dilation (cm): 3 Effacement (Percent): 50 Station: -2 Cervical Position: Midposition - Labor Progress (Free Text) Labor Progress: Doing well. Pitocin at 6. AROM done with release of large amount of clear fluid
[2020-09-19] MEDS ORDERED: Bupivacaine 0.25% 10 ML SDV ONE
[2020-09-19] MEDS: Lactated Ringers 1,000 ML IV SCH ×2 (01:55→03:14)
[2020-09-19] MEDS ORDERED: fentaNYL 100 MCG/2 ML SDV EPIDUR PRN (02:09)
[2020-09-19] MEDS ORDERED: ePHEDrine 50 MG/ML SDV IVPUSH PRN (02:09)
[2020-09-19] MEDS ORDERED: Bupivacaine/fentaNYL/NS 100 ML Bag EPIDUR PRN (02:09)
[2020-09-19] MEDS ORDERED: diphenhydrAMINE 50 MG/ML SDV IVPUSH PRN (02:09)
[2020-09-19] MEDS: Ampicillin 1 GM in Sodium Chloride 0.9% 100 ML IV SCH (02:31)
--- NOTE | 2020-09-19 03:16 | PCM.PREANE ---
Preanesthetic Assessment - Procedure Proposed Procedure: Labor Epidural - Anesthesia/Transfusion/Family Hx Anesthesia History: Prior Anesthesia Reaction Transfusion History: No Prior Transfusion(s) - Review of Systems General: No Symptoms Pulmonary: No Symptoms Cardiovascular: No Symptoms Gastrointestinal: Other (GERD) Neurological: No Symptoms Other: Reports: None - Physical Assessment Vital Signs: Last Vital Signs Temp 37.1 C 09/18/20 18:22 Pulse 76 09/18/20 18:22 Resp 16 09/18/20 18:22 BP 133/95 H 09/18/20 18:22 Pulse Ox 100 09/18/20 18:22 Height: 1.65 m Weight: 88.723 kg ASA Class: 2 Mental Status: Alert & Oriented x3 Airway Class: Mallampati = 2 Dentition: Reports: Normal Dentition Thyro-Mental Finger Breadths: 3 Mouth Opening Finger Breadths: 3 ROM/Head Extension: Full Lungs: Clear to Auscultation, Normal Respiratory Effort Cardiovascular: Regular Rate, Regular Rhythm - Lab Values: Laboratory Last Values WBC 10.88 K/mm3 (3.98-10.04) H 09/18/20 18:54 RBC 4.51 M/mm3 (3.98-5.22) 09/18/20 18:54 Hgb 12.3 gm/dl (11.2-15.7) 09/18/20 18:54 Hct 37.7 % (34.1-44.9) 09/18/20 18:54 MCV 83.6 fl (79.4-94.8) 09/18/20 18:54 MCH 27.3 pg (25.6-32.2) 09/18/20 18:54 MCHC 32.6 g/dl (32.2-35.5) 09/18/20 18:54 RDW Std Deviation 41.6 fL (36.4-46.3) 09/18/20 18:54 Plt Count 212 K/mm3 (182-369) 09/18/20 18:54 MPV 10.6 fl (9.4-12.3) 09/18/20 18:54 Creatinine 0.6 mg/dL (0.55-1.02) 09/18/20 18:54 Est Cr Clr Drug Dosing 122.25 mL/min 09/18/20 18:54 Estimated GFR (MDRD) > 60 mL/min (>60) 09/18/20 18:54 AST 18 U/L (15-37) 09/18/20 18:54 ALT 19 U/L (14-59) 09/18/20 18:54 Ur Random Creatinine 159.4 mg/dL (30.0-125.0) H 09/18/20 21:20 U Random Total Protein 41.3 mg/dL (0.0-11.8) H 09/18/20 21:20 Protein/Creatinin Ratio 259.1 mg/g (0-149) H 09/18/20 21:20 RPR Non-reactive (NONREACTIVE) 09/18/20 18:54 SARS-CoV-2 RNA (ALEJANDRA) Negative (NEGATIVE) 09/18/20 18:25 Blood Type O NEGATIVE 09/18/20 18:54 Gel Antibody Screen Positive 09/18/20 18:54 - Allergies Allergies/Adverse Reactions: Allergies Allergy/AdvReac Type Severity Reaction Status Date / Time Sulfa (Sulfonamide Allergy Hives Verified 09/18/20 19:07 Antibiotics) - Acknowledgements Anesthesia Type Planned: Epidural Pt an Appropriate Candidate for the Planned Anesthesia: Yes Alternatives and Risks of Anesthesia Discussed w Pt/Guardian: Yes Pt/Guardian Understands and Agrees with Anesthesia Plan: Yes PreAnesthesia Questionnaire HEENT History: Reports: Impaired Vision Other HEENT History: Corrective lenses Respiratory History: Reports: Asthma PASTE UP ARTIST History: Reports: , Other (See Below) Other OB/BYN History: HELP syndrome, preeclampsia Endocrine/Metabolic History: Reports: Obesity/BMI 30+ - Past Surgical History Female Surgical History: Reports: Section - SUBSTANCE USE Tobacco Use Status *Q: Never Tobacco User Second Hand Smoke Exposure: No Recreational Drug Use History: No - HOME MEDS Home Medications: Home Meds Pnv No.95/Ferrous Fum/Folic AC [ Tablet] 1 each PO DAILY 10/28/18 [History] Docusate Sodium [Colace] 100 mg PO BID PRN cap 10/29/18 [Rx] Ibuprofen [Motrin] 600 mg PO Q6H PRN tablet 10/29/18 [Rx] - CURRENT (IN HOUSE) MEDS Current Meds: Current Medications Diphenhydramine HCl (Benadryl) 25 mg IVPUSH Q6H PRN PRN Reason: pruritis Ephedrine Sulfate (Ephedrine Sulfate) 5 mg IVPUSH ASDIRECTED PRN PRN Reason: Hypotension Fentanyl (Sublimaze) 100 mcg EPIDUR Q3H PRN PRN Reason: Pain Last Admin: 09/19/20 02:27 Dose: 100 mcg Documented by: Fentanyl/Bupivacaine HCl (Fentanyl/Bupivacaine/Ns 2 Mcg-0.125% 100 Ml) 100 ml EPIDUR ASDIRECTED PRN PRN Reason: Pain Last Admin: 09/19/20 02:27 Dose: 100 ml Documented by: Ampicillin Sodium 1 gm/ Sodium (Chloride) 100 mls @ 200 mls/hr IV Q4H JUDY Last Admin: 09/19/20 02:31 Dose: 200 mls/hr Documented by: Oxytocin/Lactated Ringer's (Pitocin In Lr 10 Units/1,000 Ml) 10 unit in 1,000 mls @ 500 mls/hr IV .CONTINUOUS JUDY Lactated Ringer's (Ringers, Lactated) 1,000 mls @ 100 mls/hr IV ASDIRECTED [facility] Last Admin: 09/19/20 01:55 Dose: 100 mls/hr Documented by: Oxytocin/Lactated Ringer's (Pitocin In Lr 10 Units/1,000 Ml) 10 unit in 1,000 mls @ 12 mls/hr IV TITRATE [facility]; Protocol Last Titration: 09/18/20 22:43 Dose: 6 munits/min, 36 mls/hr Documented by: Nalbuphine HCl (Nubain) 10 mg IVPUSH Q2H PRN PRN Reason: Pain Ondansetron HCl (Zofran) 4 mg IVPUSH Q4H PRN PRN Reason: Nausea/Vomiting Sodium Chloride (Saline Flush) 10 ml FLUSH ASDIRECTED PRN PRN Reason: Keep Vein Open Discontinued Medications Ampicillin Sodium 2 gm/ Sodium (Chloride) 100 mls @ 200 mls/hr IV ONETIME ONE Stop: 09/18/20 18:50 Last Admin: 09/18/20 18:48 Dose: 200 mls/hr Documented by:
--- NOTE | 2020-09-19 03:47 | PCM.DEL ---
L & D Note - General Info Date of Service: 09/19/20 - Delivery Note Labor: Induced by ARM, Induced by Oxytocin Delivery Outcome: Livebirth Infant Delivery Method: Spontaneous Vaginal Delivery-Single Delivery Mode: Spontaneous Presentation: Right Occiput Anterior (GRZEGORZ) Nuchal Cord: Present, Reduced Anesthesia Type: Epidural Amniotic Fluid Description: Clear Episiotomy Type: None Laceration: 1st Degree Suture type: Vicryl Suture size: 3-0 Placenta: Intact, Spontaneous Cord: 3 Vessels Estimated Blood Loss: 100 Resuscitation Needed: Yes Dickens: Bulb Syringe, Stimulated, Warmed, [place] Used, Warmer Used Delivery Comments (Free Text/Narrative):: Patient found to be complete and began pushing. With maternal pushing effort head delivered from an GRZEGORZ presentation. Nuchal cord present and reduced. With gentle downward traction the shoulder and body delivered. placed on maternal abdomen. Cord clamped and cut. Cord blood obtained. Placenta allowed time to separate and expelled intact. Inspection of perineum showed a small 1st degree which was repaired with a 3-0 Vicryl. - General Info Date of Service: 09/19/20 - Patient Data Vitals - Most Recent: Last Vital Signs Temp 37.1 C 09/18/20 18:22 Pulse 76 09/18/20 18:22 Resp 16 09/18/20 18:22 BP 133/95 H 09/18/20 18:22 Pulse Ox 100 09/18/20 18:22 Weight - Most Recent: 88.723 kg Lab Results Last 24 Hours: Laboratory Results - last 24 hr 09/18/20 09/18/20 09/18/20 Range/Units 18:25 18:54 18:54 WBC 10.88 H (3.98-10.04) K/mm3 RBC 4.51 (3.98-5.22) M/mm3 Hgb 12.3 (11.2-15.7) gm/dl Hct 37.7 (34.1-44.9) % MCV 83.6 (79.4-94.8) fl MCH 27.3 (25.6-32.2) pg MCHC 32.6 (32.2-35.5) g/dl RDW Std Deviation 41.6 (36.4-46.3) fL Plt Count 212 (182-369) K/mm3 MPV 10.6 (9.4-12.3) fl Creatinine (0.55-1.02) mg/dL Est Cr Clr Drug Dosing mL/min Estimated GFR (MDRD) (>60) mL/min AST (15-37) U/L ALT (14-59) U/L Ur Random Creatinine (30.0-125.0) mg/dL U Random Total Protein (0.0-11.8) mg/dL Protein/Creatinin Ratio (0-149) mg/g RPR (NONREACTIVE) SARS-CoV-2 RNA (ALEJANDRA) Negative (NEGATIVE) Blood Type O NEGATIVE Gel Antibody Screen Positive 09/18/20 09/18/20 09/18/20 Range/Units 18:54 18:54 21:20 WBC (3.98-10.04) K/mm3 RBC (3.98-5.22) M/mm3 Hgb (11.2-15.7) gm/dl Hct (34.1-44.9) % MCV (79.4-94.8) fl MCH (25.6-32.2) pg MCHC (32.2-35.5) g/dl RDW Std Deviation (36.4-46.3) fL Plt Count (182-369) K/mm3 MPV (9.4-12.3) fl Creatinine 0.6 (0.55-1.02) mg/dL Est Cr Clr Drug Dosing 122.25 mL/min Estimated GFR (MDRD) > 60 (>60) mL/min AST 18 (15-37) U/L ALT 19 (14-59) U/L Ur Random Creatinine 159.4 H (30.0-125.0) mg/dL U Random Total Protein 41.3 H (0.0-11.8) mg/dL Protein/Creatinin Ratio 259.1 H (0-149) mg/g RPR Non-reactive (NONREACTIVE) SARS-CoV-2 RNA (ALEJANDRA) (NEGATIVE) Blood Type Gel Antibody Screen Med Orders - Current: Current Medications Diphenhydramine HCl (Benadryl) 25 mg IVPUSH Q6H PRN PRN Reason: pruritis Ephedrine Sulfate (Ephedrine Sulfate) 5 mg IVPUSH ASDIRECTED PRN PRN Reason: Hypotension Fentanyl (Sublimaze) 100 mcg EPIDUR Q3H PRN PRN Reason: Pain Last Admin: 09/19/20 02:27 Dose: 100 mcg Documented by: Fentanyl/Bupivacaine HCl (Fentanyl/Bupivacaine/Ns 2 Mcg-0.125% 100 Ml) 100 ml EPIDUR ASDIRECTED PRN PRN Reason: Pain Last Admin: 09/19/20 02:27 Dose: 100 ml Documented by: Ampicillin Sodium 1 gm/ Sodium (Chloride) 100 mls @ 200 mls/hr IV Q4H JUDY Last Admin: 09/19/20 02:31 Dose: 200 mls/hr Documented by: Oxytocin/Lactated Ringer's (Pitocin In Lr 10 Units/1,000 Ml) 10 unit in 1,000 mls @ 500 mls/hr IV .CONTINUOUS JUDY Lactated Ringer's (Ringers, Lactated) 1,000 mls @ 100 mls/hr IV ASDIRECTED JUDY Last Admin: 09/19/20 03:14 Dose: 100 mls/hr Documented by: Oxytocin/Lactated Ringer's (Pitocin In Lr 10 Units/1,000 Ml) 10 unit in 1,000 mls @ 12 mls/hr IV TITRATE JUDY; Protocol Last Titration: 09/18/20 22:43 Dose: 6 munits/min, 36 mls/hr Documented by: Nalbuphine HCl (Nubain) 10 mg IVPUSH Q2H PRN PRN Reason: Pain Ondansetron HCl (Zofran) 4 mg IVPUSH Q4H PRN PRN Reason: Nausea/Vomiting Sodium Chloride (Saline Flush) 10 ml FLUSH ASDIRECTED PRN PRN Reason: Keep Vein Open Discontinued Medications Ampicillin Sodium 2 gm/ Sodium (Chloride) 100 mls @ 200 mls/hr IV ONETIME ONE Stop: 09/18/20 18:50 Last Admin: 09/18/20 18:48 Dose: 200 mls/hr Documented by: - Problem List & Annotations (1) 37 weeks gestation of SNOMED Code(s): 45523945 Code(s): Z3A.37 - 37 WEEKS GESTATION OF Status: Acute Current Visit: Yes (2) Abnormal test SNOMED Code(s): 671601759, 953611157 Code(s): O28.9 - UNSP ABNORMAL FINDINGS ON SCREENING OF MOTHER Status: Acute Current Visit: Yes (3) History of SNOMED Code(s): 922233520 Code(s): Z98.891 - HISTORY OF UTERINE SCAR FROM PREVIOUS SURGERY Status: Acute Current Visit: No (4) Hx successful (vaginal after ), currently SNOMED Code(s): 873427739, 896869116, 649609861 Code(s): O34.219 - MATERNAL CARE FOR UNSP TYPE SCAR FROM PREVIOUS DEL Status: Acute Current Visit: No (5) Rh negative state in antepartum period SNOMED Code(s): 765453531 Code(s): O26.899 - OTH RELATED CONDITIONS, UNSPECIFIED TRIMESTER; Z67.91 - UNSPECIFIED BLOOD TYPE, RH NEGATIVE Status: Acute Current Visit: No (6) , delivered, current hospitalization SNOMED Code(s): 019973543 Code(s): O34.219 - MATERNAL CARE FOR UNSP TYPE SCAR FROM PREVIOUS DEL Status: Acute Current Visit: Yes - Problem List Review Problem List Initiated/Reviewed/Updated: Yes - My Orders Last 24 Hours: My Active Orders 09/18/20 Dinner Regular Diet [DIET] 09/18/20 18:21 Nalbuphine [Nubain] 10 mg IVPUSH Q2H PRN Ondansetron [Zofran] 4 mg IVPUSH Q4H PRN Sodium Chloride 0.9% [Saline Flush] 10 ml FLUSH ASDIRECTED PRN Resuscitation Status Routine 09/18/20 18:22 Patient Status [ADT] Routine Activity as Tolerated [RC] PFP Communication Order [RC] ASDIRECTED Heart Tones [RC] ASDIRECTED Non Stress Test [RC] PER UNIT ROUTINE Notify Provider [RC] PFP Notify Provider [RC] PRN Peripheral IV Care [RC] . DIRECTED Vital Signs [RC] PER UNIT ROUTINE Electronic Heart Tones Ext w TOCO [WOMSER] Routine Electronic Heart Tones Internal [WOMSER] Per Unit Routine Peripheral IV Insertion Adult [OM.PC] Routine 09/18/20 18:30 Lactated Ringers [Ringers, Lactated] 1,000 ml IV ASDIRECTED Oxytocin/Lactated Ringers [Pitocin in LR 10 Units/1,000 ML] 10 unit in 1,000 ml IV .CONTINUOUS 09/18/20 18:54 ANTIBODY IDENTIFICATION [BBK] Routine TYPE AND SCREEN [[facility]] Routine 09/18/20 20:00 Oxytocin/Lactated Ringers [Pitocin in LR 10 Units/1,000 ML] 10 unit in 1,000 ml IV TITRATE 09/18/20 22:30 Ampicillin 1 gm Sodium Chloride 0.9% [Normal Saline] 100 ml IV Q4H - Assessment Assessment:: PPD#0 - Plan Plan:: * Routine cares * Breast feeding * Assess baby blood type to see if Rhogam required * Discharge home in 1-2 days
[2020-09-19] MEDS ORDERED: Acetaminophen 325 MG Tab PO PRN (04:36)
[2020-09-19] MEDS ORDERED: Witch Hazel Medicated Pads 40/Jar TOP PRN (04:36)
[2020-09-19] MEDS ORDERED: Docusate Sodium 100 MG Cap PO PRN (04:36)
[2020-09-19] MEDS ORDERED: Benzocaine/Menthol 20%-0.5% Spray 56 GM Canister TOP PRN (04:36)
--- NOTE | 2020-09-19 07:41 | PCM48HPAN ---
Post Anesthesia Note - EVALUATION WITHIN 48HRS OF ANESTHETIC Vital Signs in Normal Range: Yes Patient Participated in Evaluation: Yes Respiratory Function Stable: Yes Airway Patent: Yes Cardiovascular Function Stable: Yes Hydration Status Stable: Yes Pain Control Satisfactory: Yes Nausea and Vomiting Control Satisfactory: Yes Mental Status Recovered: Yes Vital Signs: Last Vital Signs Temp 37.1 C 09/18/20 18:22 Pulse 76 09/18/20 18:22 Resp 16 09/18/20 18:22 BP 133/95 H 09/18/20 18:22 Pulse Ox 100 09/18/20 18:22 - COMMENTS/OBSERVATIONS Free Text/Narrative:: no anesthesia complications noted
[2020-09-19] MEDS: Ibuprofen 600 MG Tab PO PRN (13:16)
[2020-09-20] MEDS: Ibuprofen 600 MG Tab PO PRN (00:33)
--- NOTE | 2020-09-20 07:25 | PCM.PNPP ---
- General Info Date of Service: 09/20/20 Functional Status: Reports: Pain Controlled, Tolerating Diet, Ambulating, Urinating - Review of Systems General: Reports: No Symptoms Pulmonary: Reports: No Symptoms Cardiovascular: Reports: No Symptoms Gastrointestinal: Reports: No Symptoms Genitourinary: Reports: No Symptoms Musculoskeletal: Reports: No Symptoms Neurological: Reports: No Symptoms - General Info Date of Service: 09/20/20 - Patient Data Vital Signs - Most Recent: Last Vital Signs Temp 36.4 C 09/20/20 05:06 Pulse 70 09/20/20 05:06 Resp 15 09/20/20 05:06 BP 116/84 09/20/20 05:06 Pulse Ox 100 09/20/20 05:06 Weight - Most Recent: 88.723 kg Lab Results - Last 24 Hours: Laboratory Results - last 24 hr 09/19/20 Range/Units 07:48 Blood Type O NEGATIVE Gel Antibody Screen Positive Screen 1 ros/5 flds - neg RhIG Candidate? Yes Rhogam Indicated Yes, baby rh pos H Med Orders - Current: Current Medications Acetaminophen (Tylenol) 650 mg PO Q4H PRN PRN Reason: mild pain or fever Benzocaine/Menthol (Dermoplast Pain Relief [place]) 0 gm TOP ASDIRECTED PRN PRN Reason: Perineal Comfort Measure Last Admin: 09/19/20 06:47 Dose: 1 can Documented by: Docusate Sodium (Colace) 100 mg PO BID PRN PRN Reason: Constipation Ibuprofen (Motrin) 600 mg PO Q6H PRN PRN Reason: Mild pain or fever Last Admin: 09/20/20 00:33 Dose: 600 mg Documented by: Kathy Hernandez) 1 pad TOP ASDIRECTED PRN PRN Reason: Perineal Comfort Measure Last Admin: 09/19/20 06:46 Dose: 1 tub Documented by: Discontinued Medications Bupivacaine HCl (Sensorcaine-Mpf 0.25%) 10 ml .ROUTE .STK-MED ONE Stop: 09/19/20 00:01 Diphenhydramine HCl (Benadryl) 25 mg IVPUSH Q6H PRN PRN Reason: pruritis Ephedrine Sulfate (Ephedrine Sulfate) 5 mg IVPUSH ASDIRECTED PRN PRN Reason: Hypotension Fentanyl (Sublimaze) 100 mcg EPIDUR Q3H PRN PRN Reason: Pain Last Admin: 09/19/20 02:27 Dose: 100 mcg Documented by: Fentanyl/Bupivacaine HCl (Fentanyl/Bupivacaine/Ns 2 Mcg-0.125% 100 Ml) 100 ml EPIDUR ASDIRECTED PRN PRN Reason: Pain Last Admin: 09/19/20 02:27 Dose: 100 ml Documented by: Ampicillin Sodium 2 gm/ Sodium (Chloride) 100 mls @ 200 mls/hr IV ONETIME ONE Stop: 09/18/20 18:50 Last Admin: 09/18/20 18:48 Dose: 200 mls/hr Documented by: Ampicillin Sodium 1 gm/ Sodium (Chloride) 100 mls @ 200 mls/hr IV Q4H JUDY Last Admin: 09/19/20 02:31 Dose: 200 mls/hr Documented by: Oxytocin/Lactated Ringer's (Pitocin In Lr 10 Units/1,000 Ml) 10 unit in 1,000 mls @ 500 mls/hr IV .CONTINUOUS JUDY Lactated Ringer's (Ringers, Lactated) 1,000 mls @ 100 mls/hr IV ASDIRECTED JUDY Last Admin: 09/19/20 03:14 Dose: 100 mls/hr Documented by: Oxytocin/Lactated Ringer's (Pitocin In Lr 10 Units/1,000 Ml) 10 unit in 1,000 mls @ 12 mls/hr IV TITRATE JUDY; Protocol Last Titration: 09/19/20 03:28 Dose: 83.33 munits/min, 500 mls/hr Documented by: Nalbuphine HCl (Nubain) 10 mg IVPUSH Q2H PRN PRN Reason: Pain Ondansetron HCl (Zofran) 4 mg IVPUSH Q4H PRN PRN Reason: Nausea/Vomiting Sodium Chloride (Saline Flush) 10 ml FLUSH ASDIRECTED PRN PRN Reason: Keep Vein Open - Interaction Infant Disposition, : [place] in Room with Family Infant Interaction: Holding Infant Feeding: Breastfed Infant; Nursed Well Support Person: - Recovery Exam Fundal Tone: Firm Fundal Level: At Umbilicus Fundal Placement: Midline Lochia Amount: Small Lochia Color: Rubra/Red Perineum Description: Other (see below) Other Perinuem Description: 1st degree laceration with repair Bladder Status: Voiding Urinary Elimination: Voided - Exam General: Alert, Oriented, Cooperative GI/Abdominal Exam: Soft, Non-Tender - Problem List & Annotations (1) 37 weeks gestation of SNOMED Code(s): 05964298 Code(s): Z3A.37 - 37 WEEKS GESTATION OF Status: Acute Current Visit: Yes (2) Abnormal test SNOMED Code(s): 073777929, 687151136 Code(s): O28.9 - UNSP ABNORMAL FINDINGS ON SCREENING OF MOTHER Status: Acute Current Visit: Yes (3) History of SNOMED Code(s): 155162531 Code(s): Z98.891 - HISTORY OF UTERINE SCAR FROM PREVIOUS SURGERY Status: Acute Current Visit: No (4) Hx successful (vaginal after ), currently SNOMED Code(s): 545070314, 341498074, 516214632 Code(s): O34.219 - MATERNAL CARE FOR UNSP TYPE SCAR FROM PREVIOUS DEL Status: Acute Current Visit: No (5) Rh negative state in antepartum period SNOMED Code(s): 491741367 Code(s): O26.899 - OTH RELATED CONDITIONS, UNSPECIFIED TRIMESTER; Z67.91 - UNSPECIFIED BLOOD TYPE, RH NEGATIVE Status: Acute Current Visit: No (6) , delivered, current hospitalization SNOMED Code(s): 684389349 Code(s): O34.219 - MATERNAL CARE FOR UNSP TYPE SCAR FROM PREVIOUS DEL Status: Acute Current Visit: Yes - Problem List Review Problem List Initiated/Reviewed/Updated: Yes - My Orders Last 24 Hours: My Active Orders 09/19/20 Breakfast Regular Diet [DIET] 09/20/20 04:36 Heat Therapy [OM.PC] PRN 09/20/20 07:24 Ready for Discharge [RC] PER UNIT ROUTINE - Assessment Assessment:: PPD#1 - Plan Plan:: * Routine cares * Breast feeding * Received Rhogam yesterday * Discharge home today
--- NOTE | 2020-09-20 07:25 | PCM.DCSUM1 ---
Discharge Summary - Discharge Data Discharge Date: 09/20/20 Discharge Disposition: Home, Self-Care 01 Condition: Good - Referral to Home Health Primary Care Physician: Shari Borja MD - Discharge Diagnosis/Problem(s) (1) 37 weeks gestation of SNOMED Code(s): 71734767 ICD Code: Z3A.37 - 37 WEEKS GESTATION OF Status: Acute Current Visit: Yes (2) Abnormal test SNOMED Code(s): 907160627, 161184415 ICD Code: O28.9 - UNSP ABNORMAL FINDINGS ON SCREENING OF MOTHER Status: Acute Current Visit: Yes (3) History of SNOMED Code(s): 995785282 ICD Code: Z98.891 - HISTORY OF UTERINE SCAR FROM PREVIOUS SURGERY Status: Acute Current Visit: No (4) Hx successful (vaginal after ), currently SNOMED Code(s): 712808226, 260645953, 085512960 ICD Code: O34.219 - MATERNAL CARE FOR UNSP TYPE SCAR FROM PREVIOUS DEL Status: Acute Current Visit: No (5) Rh negative state in antepartum period SNOMED Code(s): 752445991 ICD Code: O26.899 - OTH RELATED CONDITIONS, UNSPECIFIED TRIMESTER; Z67.91 - UNSPECIFIED BLOOD TYPE, RH NEGATIVE Status: Acute Current Visit: No (6) , delivered, current hospitalization SNOMED Code(s): 096020995 ICD Code: O34.219 - MATERNAL CARE FOR UNSP TYPE SCAR FROM PREVIOUS DEL Status: Acute Current Visit: Yes - Patient Summary/Data Complications: None Consults: None Recommended Follow-up Testing/Procedures: Follow up in 3 weeks for check Hospital Course: 30 y/o at 37 3/7 wks presented for IOL after a clinic visit where she noted decreased FM and a non reactive NST. IOL done with pitocin an AROM. She progressed well and underwent an uncomplicated . See delivery note. did well and was discharged home on PPD#1 - Patient Instructions Diet: Regular Diet as Tolerated Activity: As Tolerated Activity, Other: pelvic rest for 6 weeks Driving: May Drive Today Showering/Bathing: May Shower Showering/Bathing, Other: May bathe Notify Provider of: Fever, Increased Pain, Swelling and Redness, Drainage, Nausea and/or Vomiting - Discharge Plan *PRESCRIPTION DRUG MONITORING PROGRAM REVIEWED*: No *COPY OF PRESCRIPTION DRUG MONITORING REPORT IN PATIENT EVIE: No Home Medications: Home Meds Pnv No.95/Ferrous Fum/Folic AC [ Tablet] 1 each PO DAILY 10/28/18 [History] Docusate Sodium [Colace] 100 mg PO BID PRN cap 09/20/20 [Rx] Ibuprofen [Motrin] 600 mg PO Q6H PRN tablet 09/20/20 [Rx] Referrals: Shari Borja MD [Primary Care Provider] - (3 weeks for check - can be telehealth) - Discharge Summary/Plan Comment DC Time >30 min.: No - Patient Data Vitals - Most Recent: Last Vital Signs Temp 36.4 C 09/20/20 05:06 Pulse 70 09/20/20 05:06 Resp 15 09/20/20 05:06 BP 116/84 09/20/20 05:06 Pulse Ox 100 09/20/20 05:06 Weight - Most Recent: 88.723 kg Lab Results - Last 24 hrs: Laboratory Results - last 24 hr 09/19/20 Range/Units 07:48 Blood Type O NEGATIVE Gel Antibody Screen Positive Screen 1 ros/5 flds - neg RhIG Candidate? Yes Rhogam Indicated Yes, baby rh pos H Med Orders - Current: Current Medications Acetaminophen (Tylenol) 650 mg PO Q4H PRN PRN Reason: mild pain or fever Benzocaine/Menthol (Dermoplast Pain Relief [place]) 0 gm TOP ASDIRECTED PRN PRN Reason: Perineal Comfort Measure Last Admin: 09/19/20 06:47 Dose: 1 can Documented by: Docusate Sodium (Colace) 100 mg PO BID PRN PRN Reason: Constipation Ibuprofen (Motrin) 600 mg PO Q6H PRN PRN Reason: Mild pain or fever Last Admin: 09/20/20 00:33 Dose: 600 mg Documented by: Kathy Strong) 1 pad TOP ASDIRECTED PRN PRN Reason: Perineal Comfort Measure Last Admin: 09/19/20 06:46 Dose: 1 tub Documented by: Discontinued Medications Bupivacaine HCl (Sensorcaine-Mpf 0.25%) 10 ml .ROUTE .STK-MED ONE Stop: 09/19/20 00:01 Diphenhydramine HCl (Benadryl) 25 mg IVPUSH Q6H PRN PRN Reason: pruritis Ephedrine Sulfate (Ephedrine Sulfate) 5 mg IVPUSH ASDIRECTED PRN PRN Reason: Hypotension Fentanyl (Sublimaze) 100 mcg EPIDUR Q3H PRN PRN Reason: Pain Last Admin: 09/19/20 02:27 Dose: 100 mcg Documented by: Fentanyl/Bupivacaine HCl (Fentanyl/Bupivacaine/Ns 2 Mcg-0.125% 100 Ml) 100 ml EPIDUR ASDIRECTED PRN PRN Reason: Pain Last Admin: 09/19/20 02:27 Dose: 100 ml Documented by: Ampicillin Sodium 2 gm/ Sodium (Chloride) 100 mls @ 200 mls/hr IV ONETIME ONE Stop: 09/18/20 18:50 Last Admin: 09/18/20 18:48 Dose: 200 mls/hr Documented by: Ampicillin Sodium 1 gm/ Sodium (Chloride) 100 mls @ 200 mls/hr IV Q4H JUDY Last Admin: 09/19/20 02:31 Dose: 200 mls/hr Documented by: Oxytocin/Lactated Ringer's (Pitocin In Lr 10 Units/1,000 Ml) 10 unit in 1,000 mls @ 500 mls/hr IV .CONTINUOUS JUDY Lactated Ringer's (Ringers, Lactated) 1,000 mls @ 100 mls/hr IV ASDIRECTED JUDY Last Admin: 09/19/20 03:14 Dose: 100 mls/hr Documented by: Oxytocin/Lactated Ringer's (Pitocin In Lr 10 Units/1,000 Ml) 10 unit in 1,000 mls @ 12 mls/hr IV TITRATE JUDY; Protocol Last Titration: 09/19/20 03:28 Dose: 83.33 munits/min, 500 mls/hr Documented by: Nalbuphine HCl (Nubain) 10 mg IVPUSH Q2H PRN PRN Reason: Pain Ondansetron HCl (Zofran) 4 mg IVPUSH Q4H PRN PRN Reason: Nausea/Vomiting Sodium Chloride (Saline Flush) 10 ml FLUSH ASDIRECTED PRN PRN Reason: Keep Vein Open
== END 2020-09-20 11:10 | disposition home or self-care (01) | DRG 560 ==
LOC: JD.OB 03:47 → OBSVTOIN 09-19 03:47 → JD.OB 09-19 03:48
PROVIDERS: ADMIT Obstetrics & Gynecology; ATTEND Obstetrics & Gynecology
PROC: 10E0XZZ Delivery of Products of Conception, External Approach (ICD-10-PCS; principal; 2020-09-19)
PROC: 10907ZC Drainage of Amniotic Fluid, Therapeutic from Products of Conception, Via Natural or Artificial Opening (ICD-10-PCS; 2020-09-19)
PROC: 3E033VJ Introduction of Other Hormone into Peripheral Vein, Percutaneous Approach (ICD-10-PCS; 2020-09-19)
PROC: 0HQ9XZZ Repair Perineum Skin, External Approach (ICD-10-PCS; 2020-09-19)
PROC: 3E0R3BZ Introduction of Anesthetic Agent into Spinal Canal, Percutaneous Approach (ICD-10-PCS; 2020-09-19)
PROC: 00HU33Z Insertion of Infusion Device into Spinal Canal, Percutaneous Approach (ICD-10-PCS; 2020-09-19)
PROC: 3E0334Z Introduction of Serum, Toxoid and Vaccine into Peripheral Vein, Percutaneous Approach (ICD-10-PCS; 2020-09-19)
DX: O34.211 Maternal care for low transverse scar from previous cesarean delivery (principal); O28.9 Unspecified abnormal findings on antenatal screening of mother; Z37.0 Single live birth; Z3A.37 37 weeks gestation of pregnancy; Z88.2 Allergy status to sulfonamides; O99.214 Obesity complicating childbirth; E66.9 Obesity, unspecified; O70.0 First degree perineal laceration during delivery; Z20.822 Contact with and (suspected) exposure to COVID-19; O26.893 Other specified pregnancy related conditions, third trimester; Z67.41 Type O blood, Rh negative
CPT/HCPCS: 01967; 36415; 51701; 59025; 59409; 82565; 82570; 84156; 84450; 84460; 85027; 85461; 86592; 86850; 86870; 86900; 86901; A9270-GY; J0290; J2590; J2790; J3010; J3490; J7120; U0002